=== PATIENT | male | born 1975 | race Caucasian/White ===

== ENCOUNTER 2017-02-24 10:25 | Emergency (ER) | payer OTHER ==
[2017-02-24] MEDS ORDERED: Morphine 4 MG/ML VIAL ONE (11:40)
--- NOTE | 2017-02-24 12:40 | C.PDOC ---
History Of Present Illness 41 y/o male presents to ED with complaints of pain to right buttock area. Pt with history of hemorrhoids, went to PMD given hemorrhoid cream and abx, pt used without relief. Pain is constant, 10/10 and worse with sitting. Pt denies fever, chills, nausea, vomiting, abdominal pain or any other complaints. Time Seen by Provider: 02/24/17 11:01 Chief Complaint (Nursing): GI Problem History Per: Patient History/Exam Limitations: no limitations Onset/Duration Of Symptoms: Days Current Symptoms Are (Timing): Worse Severity: Moderate Reports Recently: Treated By A Physician Recent travel outside of the [place]: No Past Medical History Reviewed: Historical Data, Nursing Documentation, Vital Signs Vital Signs: Last Vital Signs Temp 98.7 F 02/24/17 14:50 Pulse 84 02/24/17 14:50 Resp 14 02/24/17 14:50 BP 96/60 L 02/24/17 14:50 Pulse Ox 99 02/24/17 15:09 - Medical History PMH: HTN Family History: States: Unknown Family Hx - Social History Hx Alcohol Use: No Hx Substance Use: No - Immunization History Hx Tetanus Toxoid Vaccination: No Hx Influenza Vaccination: No Hx Pneumococcal Vaccination: No Review Of Systems Except As Marked, All Systems Reviewed And Found Negative. Constitutional: Negative for: Fever, Chills Gastrointestinal: Negative for: Nausea, Vomiting, Abdominal Pain Skin: Positive for: Other (pain to right buttock area) Physical Exam - Physical Exam Appears: Non-toxic, No Acute Distress Skin: Warm, Dry, Other (large undurated area to right buttock, extending medially toward rectum, fluctuance on medial aspect, tenderness) Head: Atraumatic, Normacephalic Chest: Symmetrical Cardiovascular: Rhythm Regular, No Murmur Respiratory: Normal Breath Sounds, No Rales, No Rhonchi, No Wheezing Gastrointestinal/Abdominal: Normal Exam, Soft, No Tenderness Extremity: Bilateral: Atraumatic Neurological/Psych: Oriented x3, Normal Speech ED Course And Treatment - Laboratory Results Result Diagrams: 02/24/17 13:40 O2 Sat by Pulse Oximetry: 99 (room air) Pulse Ox Interpretation: Normal - Incision & Drainage Of Abscess Anesthesia: Lidocaine 1% Procedure: Incised W/Scalpel Blade#: (11, 1 cm incision to medial aspect right buttock), Drained Pus (40 mL), Irrigated Cavity W/Saline, Packed W/Gauze Medical Decision Making Medical Decision Making: Pt s/p I&D, now with temperature 102. Will proceed with blood work and abx, consider for admission. Discussion with patient regarding pros and cons for admission. patient request d /c. He will return for wound eval tomorrow. Attempted to contact PMD. Unsuccessful. Disposition Counseled Patient/Family Regarding: Diagnosis, Need For Followup - Disposition Referrals: Gregory Infante MD [Staff Provider] - Disposition: HOME/ ROUTINE Disposition Time: 15:09 Condition: STABLE Additional Instructions: Return to the Emergency Department tomorrow for packing change. Follow up with Dr. Infante, surgery as soon as possible. Prescriptions: Clindamycin [Cleocin] 1 cap PO QID #30 cap Ibuprofen [Motrin] 600 mg PO TID #15 tab oxyCODONE/Acetaminophen [Percocet 5/325 mg Tab] 2 tab PO TID #18 tab Instructions: Abscess (ED), Incision and Drainage (ED) Forms: General Discharge Instructions, Work Excuse - POA Present On Arrival: None - Clinical Impression Clinical Impression: Abscess - Scribe Statement The provider has reviewed the documentation as recorded by the Michelle Ojeda Provider Attestation: All medical record entries made by the Giancarloibe were at my direction and personally dictated by me. I have reviewed the chart and agree that the record accurately reflects my personal performance of the history, physical exam, medical decision making, and the department course for this patient. I have also personally directed, reviewed, and agree with the discharge instructions and disposition.
[2017-02-24] MEDS ORDERED: Vancomycin 1 gm/NS 200 ml 1 GM/200 ML BAG IVPB ONE (13:00)
[2017-02-24 13:24] LABS: VENOUS BLOOD GAS BASE EXCESS 1.7 mmol/L (0.0-2.0); VENOUS BLOOD GAS PCO2 38 mmHg (40-60); VENOUS BLOOD GAS PO2 35 mm/Hg (30-55); VENOUS BLOOD PH 7.44 (7.32-7.43)
[2017-02-24] MEDS ORDERED: Piperacillin/Tazobact 3.375 gm 100 ML IVPB ONE (13:25)
[2017-02-24] MEDS ORDERED: Vancomycin 1 GM 1 GM/250 ML BAG IVPB ONE (13:26)
[2017-02-24] MEDS ORDERED: Vancomycin 1 gm/NS 200 ml 1 GM/200 ML BAG IVPB STA (13:29)
[2017-02-24] MEDS ORDERED: Piperacill/Tazo 3.375gm in Dex 3.375 GM/50 ML BAG IVPB STA (13:29)
[2017-02-24 13:54] LABS: BASO % 0.2 % (0.0-2.0); EOS # 0.1 K/uL (0.0-0.7); EOS % 0.5 % (0.0-4.0); HEMOGLOBIN 13.5 g/dL (12.0-18.0); LYMPH # 1.2 K/uL (1.0-4.3); LYMPH % 8.6 % (20.0-40.0); MEAN CELL VOLUME 81.2 fL (80.0-94.0); MEAN CORPUSCULAR HEMOGLOBIN 26.4 pg (27.0-31.0); MEAN CORPUSCULAR HGB CONC 32.6 g/dL (33.0-37.0); MEAN PLATELET VOLUME 8.6 fL (7.2-11.7); MONO # 1.3 K/uL (0.0-0.8); MONO % 9.3 % (0.0-10.0); NEUT # 11.6 K/uL (1.8-7.0); NEUT % 81.4 % (50.0-75.0); PLATELET COUNT 181 K/uL (130-400); RBC 5.09 Mil/uL (4.40-5.90); RED CELL DISTRIBUTION WIDTH 12.4 % (11.5-14.5); WHITE BLOOD COUNT 14.2 K/uL (4.8-10.8)
[2017-02-24] MEDS ORDERED: Piperacill/Tazo 3.375gm in Dex 3.375 GM/50 ML BAG IVPB ONE (14:00)
[2017-02-24] MEDS ORDERED: Sodium Chloride 0.9% 1,000 ML IV ONE (14:23)
[2017-02-24 14:55] VITALS: BP 96/60; PULSE 84; RESP 14; TEMP 98.7
[2017-02-24 15:10] VITALS: O2SAT 99
[2017-02-24 15:19] LABS: EOSINOPHIL 2 % (0-4); LYMPHOCYTE 6 % (20-40); MONOCYTE 6 % (0-10); NEUTROPHIL 86 % (50-75); TOTAL CELLS COUNTED 100
[2017-02-24 15:20] LABS: PLATELET ESTIMATE NORMAL (NORMAL)
== END 2017-02-24 15:51 | disposition home or self-care (01) ==
LOC: C.ER 10:25
DX: L02.31 Cutaneous abscess of buttock (principal); I10 Essential (primary) hypertension
CPT/HCPCS: 10060; 82803; 85025; 87040; 96365; 96367; 96375; 99284; J2270; J2543; J3370; J7040

== ENCOUNTER 2017-02-25 09:48 | Emergency (ER) | payer OTHER ==
[2017-02-25 09:54] VITALS: BMI 36.1
[2017-02-25 09:57] VITALS: BP 104/69; PULSE 76; RESP 20; TEMP 98; O2SAT 99
--- NOTE | 2017-02-25 10:52 | C.PDOC ---
History Of Present Illness 41-year-old male, presents to the emergency department for wound check. Patient came in yesterday and had I&D procedure to left buttock. Denies any new symptoms. No fever Time Seen by Provider: 02/25/17 10:09 Chief Complaint (Nursing): Wound Check History Per: Patient History/Exam Limitations: no limitations Current Symptoms Are (Timing): Better Location Of Injury: Left: Buttock Past Medical History Reviewed: Historical Data, Nursing Documentation, Vital Signs Vital Signs: Last Vital Signs Temp 98 F 02/25/17 09:53 Pulse 76 02/25/17 09:53 Resp 20 02/25/17 09:53 BP 104/69 02/25/17 09:53 Pulse Ox 99 02/25/17 10:52 - Medical History PMH: HTN Family History: States: No Known Family Hx - Social History Hx Alcohol Use: No Hx Substance Use: No - Immunization History Hx Tetanus Toxoid Vaccination: No Hx Influenza Vaccination: No Hx Pneumococcal Vaccination: No Review Of Systems Constitutional: Negative for: Fever Gastrointestinal: Negative for: Nausea, Vomiting Musculoskeletal: Negative for: Back Pain Physical Exam - Physical Exam Appears: Non-toxic, No Acute Distress Skin: Warm, Dry, No Rash Neck: Normal ROM Respiratory: No Accessory Muscle Use Rectal: Other (Director Learning And Development: Mynor (RN). 1cm draining abscess. Packing in place.) Extremity: Normal ROM ED Course And Treatment O2 Sat by Pulse Oximetry: 99 Medical Decision Making Medical Decision Making: Old records reviewed the patient was seen in the ED for similar symptoms and had I&D performed. Patient reports that he taking the antibiotics and was instructed to continue until completed. Physical exam shows draining abscess, with small amount of drainage left. Patient was instructed to Return tomorrow for packing removal. Disposition - Disposition Referrals: Lalita Deng MD [Staff Provider] - Disposition: HOME/ ROUTINE Disposition Time: 10:51 Condition: GOOD Additional Instructions: Return tomorrow for packing removal. Instructions: Abscess (ED) - Clinical Impression Clinical Impression: Wound check, abscess - Scribe Statement The provider has reviewed the documentation as recorded by the Scribe (Clara Main) All medical record entries made by the Scribe were at my direction and personally dictated by me. I have reviewed the chart and agree that the record accurately reflects my personal performance of the history, physical exam, medical decision making, and the department course for this patient. I have also personally directed, reviewed, and agree with the discharge instructions and disposition.
== END 2017-02-25 10:56 | disposition home or self-care (01) ==
LOC: C.ER 09:48
DX: Z48.00 Encounter for change or removal of nonsurgical wound dressing (principal)

== ENCOUNTER 2017-02-26 10:48 | Emergency (ER) | payer OTHER ==
[2017-02-26 10:48] VITALS: BMI 36.1
[2017-02-26 10:54] VITALS: O2SAT 99
--- NOTE | 2017-02-26 11:26 | C.PDOC ---
History Of Present Illness 41 y/o male presents to the ED for wound check of abscess to right buttock s/p I &D 2 days ago. Pt states he has been compliant with antibiotics, and that the area is less painful and swollen and appears to be improving. Pt denies fever/ chills or other physical complaints. Time Seen by Provider: 02/26/17 10:55 Chief Complaint (Nursing): Wound Check History Per: Patient History/Exam Limitations: no limitations Onset/Duration Of Symptoms: Days Ago Current Symptoms Are (Timing): Better Severity: Mild Past Medical History Reviewed: Historical Data, Nursing Documentation, Vital Signs Vital Signs: Last Vital Signs Temp 98.0 F 02/26/17 11:24 Pulse 76 02/26/17 11:24 Resp 12 02/26/17 11:24 BP 101/66 02/26/17 11:24 Pulse Ox 99 02/26/17 12:12 - Medical History PMH: HTN Family History: States: No Known Family Hx - Social History Hx Alcohol Use: No Hx Substance Use: No - Immunization History Hx Tetanus Toxoid Vaccination: No Hx Influenza Vaccination: No Hx Pneumococcal Vaccination: No Review Of Systems Except As Marked, All Systems Reviewed And Found Negative. Constitutional: Negative for: Fever, Chills Cardiovascular: Negative for: Chest Pain, Palpitations Respiratory: Negative for: Cough, Shortness of Breath Gastrointestinal: Negative for: Nausea, Vomiting, Abdominal Pain, Diarrhea Skin: Positive for: Other (abscess to right buttock) Physical Exam - Physical Exam Appears: Well, Non-toxic, No Acute Distress Skin: Warm, Dry, Other (right inner buttock with draining pustule, mild purulent discharge, packing in place; peripherally indurated, no overlying erythema) Oral Mucosa: Moist Cardiovascular: Rhythm Regular Respiratory: Normal Breath Sounds, No Rales, No Rhonchi, No Wheezing Extremity: Normal ROM Neurological/Psych: Oriented x3 ED Course And Treatment O2 Sat by Pulse Oximetry: 99 (room air) Pulse Ox Interpretation: Normal Progress Note: Packing removed by me, patient tolerated well. Covered area with dressing. Instructed patient to continue abx and apply warm compress or warm bath soaks, and follow up with surgeon as previosuly instructed. He understands he should return to ED if symptoms worsen. Disposition Counseled Patient/Family Regarding: Studies Performed, Diagnosis, Need For Followup - Disposition Referrals: Lalita Deng MD [Primary Care Provider] - Disposition: HOME/ ROUTINE Disposition Time: 11:20 Condition: STABLE Additional Instructions: FOLLOW UP WITH GENERAL SURGEON INSTRUCTED DURING PRIOR VISIT CONTINUE YOUR ANTIBIOTICS AND PAIN MEDICATION APPLY WARM COMPRESSES TO AREA RETURN TO ER IF YOU DEVELOP WORSENING SYMPTOMS Instructions: Acute Wound Care (ED), Abscess (ED) Print Language: TAJIK - POA Present On Arrival: None - Clinical Impression Clinical Impression: Wound check, abscess - Scribe Statement The provider has reviewed the documentation as recorded by the Michelle Ojeda Provider Attestation: All medical record entries made by the Michelle were at my direction and personally dictated by me. I have reviewed the chart and agree that the record accurately reflects my personal performance of the history, physical exam, medical decision making, and the department course for this patient. I have also personally directed, reviewed, and agree with the discharge instructions and disposition.
[2017-02-26 11:28] VITALS: BP 101/66; PULSE 76; RESP 12; TEMP 98
== END 2017-02-26 12:00 | disposition home or self-care (01) ==
LOC: C.ER 10:48 → SUPCPDRO 10:48 → C.ER 12:00
DX: Z48.00 Encounter for change or removal of nonsurgical wound dressing (principal)

== ENCOUNTER 2018-03-18 21:33 | Emergency (ER) | payer OTHER ==
[2018-03-18 21:33] VITALS: BMI 36.1
[2018-03-18 22:29] VITALS: TEMP 98.1
--- NOTE | 2018-03-18 23:25 | C.PDOC ---
History Of Present Illness 42 year old male presents to the ED c/o lower abdominal cramping that started yesterday. Patient reports that while doing some abdominal exercises yesterday after which he began feeling cramps in his lower abdomen. Patient reports that today while driving today he felt his abdomen cramping again became concerned and presented to the ED for evaluation. Patient states he has similar episode couple years ago. Patient denies fever, chills, nausea, vomit, diarrhea, dysuria , hematuria, weakness, numbness. Time Seen by Provider: 03/18/18 23:03 Chief Complaint (Nursing): Abdominal Pain History Per: Patient History/Exam Limitations: no limitations Onset/Duration Of Symptoms: Days Current Symptoms Are (Timing): Gone Location Of Pain/Discomfort: Diffuse Radiation Of Pain To:: None Quality Of Discomfort: Cramping Associated Symptoms: denies: Nausea, Vomiting, Diarrhea, Loss Of Appetite Exacerbating Factors: None Alleviating Factors: None Recent travel outside of the [place]: No Additional History Per: Patient Past Medical History Reviewed: Historical Data, Nursing Documentation, Vital Signs Vital Signs: Last Vital Signs Temp 98.1 F 03/18/18 22:23 Pulse 59 L 03/18/18 22:23 Resp 16 03/18/18 22:23 BP 149/89 03/18/18 22:23 Pulse Ox 99 03/18/18 22:23 - Medical History PMH: HTN Surgical History: No Surg Hx Family History: States: Unknown Family Hx - Social History Hx Alcohol Use: No Hx Substance Use: No - Immunization History Hx Tetanus Toxoid Vaccination: No Hx Influenza Vaccination: No Hx Pneumococcal Vaccination: No Review Of Systems Constitutional: Negative for: Fever, Chills Cardiovascular: Negative for: Chest Pain, Palpitations Respiratory: Negative for: Cough, Shortness of Breath Gastrointestinal: Positive for: Abdominal Pain. Negative for: Nausea, Vomiting , Diarrhea Skin: Positive for: Rash ED Course And Treatment O2 Sat by Pulse Oximetry: 99 Disposition - Disposition
--- NOTE | 2018-03-18 23:26 | C.PDOC ---
History Of Present Illness 42 year old male presents to the ED c/o lower abdominal cramping that started yesterday. Patient reports that while doing some abdominal exercises yesterday after which he began feeling cramps in his lower abdomen. Patient reports that today while driving today he felt his abdomen cramping again became concerned and presented to the ED for evaluation. Patient states he has similar episode couple years ago. Patient denies fever, chills, nausea, vomit, diarrhea, dysuria , hematuria, weakness, numbness. Time Seen by Provider: 03/18/18 23:03 Chief Complaint (Nursing): Abdominal Pain History Per: Patient History/Exam Limitations: no limitations Onset/Duration Of Symptoms: Days Current Symptoms Are (Timing): Still Present Location Of Pain/Discomfort: Diffuse Radiation Of Pain To:: None Quality Of Discomfort: Cramping Associated Symptoms: denies: Fever, Chills, Nausea, Vomiting, Diarrhea Alleviating Factors: None Recent travel outside of the [place]: No Additional History Per: Patient Past Medical History Reviewed: Historical Data, Nursing Documentation, Vital Signs Vital Signs: Last Vital Signs Temp 98.1 F 03/18/18 22:23 Pulse 88 03/18/18 23:41 Resp 20 03/18/18 23:41 BP 128/76 03/18/18 23:41 Pulse Ox 97 03/18/18 23:41 - Medical History PMH: HTN Surgical History: No Surg Hx Family History: States: Unknown Family Hx - Social History Hx Alcohol Use: No Hx Substance Use: No - Immunization History Hx Tetanus Toxoid Vaccination: No Hx Influenza Vaccination: No Hx Pneumococcal Vaccination: No Review Of Systems Constitutional: Negative for: Fever, Chills Cardiovascular: Negative for: Chest Pain, Palpitations Respiratory: Negative for: Cough, Shortness of Breath Gastrointestinal: Positive for: Abdominal Pain. Negative for: Nausea, Vomiting Genitourinary: Negative for: Dysuria, Hematuria Skin: Negative for: Rash Neurological: Negative for: Weakness, Numbness Physical Exam - Physical Exam Appears: Non-toxic, No Acute Distress Skin: Normal Color, Warm, Dry Head: Atraumatic, Normacephalic Eye(s): bilateral: Normal Inspection Oral Mucosa: Moist Neck: Normal ROM, Supple Chest: Symmetrical Cardiovascular: Rhythm Regular Respiratory: Normal Breath Sounds, No Rales, No Rhonchi, No Wheezing Gastrointestinal/Abdominal: Soft, No Tenderness, No Guarding, No Rebound, No Hernia Extremity: Normal ROM, No Tenderness, No Swelling Neurological/Psych: Oriented x3, Normal Speech Gait: Steady ED Course And Treatment O2 Sat by Pulse Oximetry: 99 (ON RA) Pulse Ox Interpretation: Normal Medical Decision Making Medical Decision Making: Impression: abdominal cramping Plan: * Motrin 600 mg PO * Tylenol 650 mg PO There are no signs of acute abdominal pathology. Patient was offered CT, labs patient is concerned for possible hernia. There is no signs for hernia in the abdominal exam. Patient refused CT and Labs but prefers to follow up with PMD as outpatient. Disposition Counseled Patient/Family Regarding: Diagnosis, Need For Followup - Disposition Referrals: YOUR,PMD [Other] Disposition: HOME/ ROUTINE Disposition Time: 23:24 Condition: IMPROVED Prescriptions: Ibuprofen [Motrin] 600 mg PO Q6 #30 tab Instructions: Acute Abdomen (Belly Pain), Adult (DC) Forms: [facility] ([place]) - Clinical Impression Clinical Impression: Abdominal wall pain - Scribe Statement The provider has reviewed the documentation as recorded by the Scribe Zac Anne All medical record entries made by the Scribe were at my direction and personally dictated by me. I have reviewed the chart and agree that the record accurately reflects my personal performance of the history, physical exam, medical decision making, and the department course for this patient. I have also personally directed, reviewed, and agree with the discharge instructions and disposition.
[2018-03-18 23:42] VITALS: BP 128/76; PULSE 88; RESP 20
[2018-03-19 13:21] VITALS: O2SAT 99
== END 2018-03-18 23:41 | disposition home or self-care (01) ==
LOC: C.ER 21:33
DX: R10.9 Unspecified abdominal pain (principal)